=== PATIENT | female | born 1990 | race African-American/Black ===

== ENCOUNTER 2017-04-06 08:38 | Emergency (ER) | payer OTHER ==
[~2017-04-06] VITALS: Ht 165.1 cm; Wt 77.1 kg
[2017-04-06] MEDS ORDERED: AMOXICILLIN 50500 M1 PO (10:21)
[2017-04-06 10:39] VITALS: BP 117/72
== END 2017-04-06 10:39 | disposition home or self-care (01) ==
LOC: ER 08:38
DX: J02.0 Streptococcal pharyngitis (principal)

== ENCOUNTER 2017-05-04 01:58 | Emergency (ER) | payer OTHER ==
[~2017-05-04] VITALS: Ht 157.5 cm; Wt 81.7 kg
[~2017-05-04 01:58] MED LIST: AMOXICILLIN 50500 M1 PO
[2017-05-04 02:46] LABS: URINE BILIRUBIN NEGATIVE (Negative); URINE BLOOD NEGATIVE (Negative); URINE COLOR YELLOW; URINE GLUCOSE-RANDOM* NEGATIVE (Negative); URINE KETONES NEGATIVE (Negative); URINE LEUKOCYTES-REFLEX NEGATIVE (Negative); URINE PROTEIN (DIPSTICK) NEGATIVE (Negative); URINE SPECIFIC GRAVITY 1.015 (1.003-1.035); URINE UROBILINOGEN 0.2 E.U./dl (0.2-1.0)
[2017-05-04 03:01] LABS: ABSOLUTE NEUTROPHILS 2.8 thou/uL (1.4-8.2); BASOPHILS 0.5 % (0.0-2.0); EOSINOPHILS 0.2 % (0.0-3.0); HEMATOCRIT 38.5 % (37.0-47.0); HEMOGLOBIN 12.7 gm/dL (12.0-15.0); LYMPHOCYTES 47.1 % (24.0-44.0); MANUAL DIFF NO; MCH 25.6 pg (26.0-34.0); MCV 77.5 fL (80.0-100.0); MONOCYTES 10.1 % (1.0-8.0); PLATELET COUNT 157 thou/uL (150-400); POLYS 42.1 % (36.0-66.0); RBC 4.97 mil/uL (4.20-5.00); WBC 6.7 thou/uL (4.0-11.0)
[2017-05-04 03:11] LABS: CALCIUM 9.2 mg/dL (8.5-10.1); CREATININE 0.8 mg/dL (0.6-1.0); POTASSIUM 3.7 mmol/L (3.5-5.1)
[2017-05-04] MEDS ORDERED: MOBIC15 MG PO (04:27)
[2017-05-04] MEDS ORDERED: ULTRAM 50MG TAB50 MG PO (04:27)
[2017-05-04 04:52] VITALS: BP 107/63
== END 2017-05-04 04:50 | disposition home or self-care (01) ==
LOC: ER 01:58
PROVIDERS: Emergency Medicine
DX: M54.9 Dorsalgia, unspecified (principal)

== ENCOUNTER 2018-02-22 14:13 | Emergency (ER) | payer BC, OTHER ==
[~2018-02-22] VITALS: Ht 165.1 cm; Wt 88.0 kg
[~2018-02-22 14:13] MED LIST changes: +HYDROCODONE-AP1 EAC6 PO; +MOBIC15 MG PO; +NOHOMEMEDICATIONS; +ULTRAM 50MG TAB50 MG PO; +VALACYCLOVIR1000 MG PO
[2018-02-22 14:59] LABS: URINE BILIRUBIN NEGATIVE (Negative); URINE BLOOD 2+ (Negative); URINE CLARITY CLEAR; URINE COLOR YELLOW; URINE GLUCOSE-RANDOM* NEGATIVE (Negative); URINE KETONES NEGATIVE (Negative); URINE LEUKOCYTES-REFLEX NEGATIVE (Negative); URINE NITRITE-REFLEX NEGATIVE (Negative); URINE PROTEIN (DIPSTICK) NEGATIVE (Negative); URINE SPECIFIC GRAVITY 1.015 (1.005-1.035); URINE UROBILINOGEN 0.2 E.U./dl (0.2-1.0)
[2018-02-22 15:06] LABS: BACTERIA-REFLEX 1-9 Few /HPF (None Seen); CASTS None Seen /LPF (None Seen); CRYSTALS None Seen /LPF (None Seen); SQUAMOUS 0-3 Few /LPF (0-3); URINE RBC None Seen /HPF (0-2); URINE WBC-REFLEX 0-5 Rare /HPF (0-5)
[2018-02-22] MEDS ORDERED: FLEXERIL PO (16:19)
[2018-02-22] MEDS ORDERED: NORCO 5-325 TA1 EACH PO (16:19)
[2018-02-22] MEDS ORDERED: PREDNISONE 20 M20 MG PO (16:19)
[2018-02-22 17:02] VITALS: BP 111/57
== END 2018-02-22 17:04 | disposition home or self-care (01) ==
LOC: ER 14:13
PROVIDERS: Emergency Medicine
DX: M54.5 Low back pain (principal)

== ENCOUNTER 2018-08-11 23:16 | Emergency (ER) | payer BC, OTHER ==
[~2018-08-11] VITALS: Ht 157.5 cm; Wt 90.7 kg
[~2018-08-11 23:16] MED LIST changes: +FLEXERIL PO; +NORCO 5-325 TA1 EACH PO; +PREDNISONE 20 M20 MG PO
[2018-08-11 23:35] LABS: URINE BILIRUBIN NEGATIVE (Negative); URINE BLOOD TRACE (Negative); URINE CLARITY CLEAR; URINE COLOR YELLOW; URINE GLUCOSE-RANDOM* NEGATIVE (Negative); URINE KETONES NEGATIVE (Negative); URINE LEUKOCYTES-REFLEX NEGATIVE (Negative); URINE NITRITE-REFLEX NEGATIVE (Negative); URINE PROTEIN (DIPSTICK) NEGATIVE (Negative); URINE SPECIFIC GRAVITY <= 1.005 (1.005-1.035); URINE UROBILINOGEN 0.2 E.U./dl (0.2-1.0)
[2018-08-11] MEDS ORDERED: PREDNISONE 20 M20 MG PO (23:45)
[2018-08-11 23:58] VITALS: BP 129/69
== END 2018-08-12 | disposition home or self-care (01) ==
LOC: ER 23:16
PROVIDERS: Emergency Medicine
DX: M72.2 Plantar fascial fibromatosis (principal); R10.9 Unspecified abdominal pain

== ENCOUNTER 2018-08-31 09:10 | Emergency (ER) | payer BC, OTHER ==
[~2018-08-31] VITALS: Ht 165.1 cm; Wt 89.8 kg
[2018-08-31] MEDS ORDERED: MEDROLDOSEPACK PO (09:26)
[2018-08-31] MEDS ORDERED: MOBIC7.5 MG PO (09:26)
== END 2018-08-31 09:40 | disposition home or self-care (01) ==
LOC: ER 09:10
DX: M72.2 Plantar fascial fibromatosis (principal)

== ENCOUNTER 2018-10-19 20:05 | Emergency (ER) | payer BC, OTHER ==
[~2018-10-19] VITALS: Ht 157.5 cm; Wt 90.7 kg
[~2018-10-19 20:05] MED LIST changes: +MEDROLDOSEPACK PO; +MOBIC7.5 MG PO
[2018-10-19] MEDS ORDERED: PREDNISONE 20 M20 MG PO (21:11)
[2018-10-19] MEDS ORDERED: MOBIC15 MG PO (21:11)
[2018-10-19 21:42] VITALS: BP 120/76
== END 2018-10-19 21:42 | disposition home or self-care (01) ==
LOC: ER 20:05
DX: M72.2 Plantar fascial fibromatosis (principal)

== ENCOUNTER 2019-07-03 10:59 | Emergency (ER) | payer BC, OTHER ==
[~2019-07-03] VITALS: Ht 165.1 cm; Wt 90.7 kg
[2019-07-03 11:21] LABS: URINE BILIRUBIN NEGATIVE (Negative); URINE BLOOD NEGATIVE (Negative); URINE CLARITY CLEAR; URINE COLOR YELLOW; URINE GLUCOSE-RANDOM* NEGATIVE (Negative); URINE KETONES NEGATIVE (Negative); URINE LEUKOCYTES-REFLEX NEGATIVE (Negative); URINE NITRITE-REFLEX NEGATIVE (Negative); URINE PROTEIN (DIPSTICK) NEGATIVE (Negative); URINE UROBILINOGEN 0.2 E.U./dl (0.2-1.0)
[2019-07-03 12:01] LABS: CALCIUM 9.3 mg/dL (8.5-10.1); CREATININE 0.8 mg/dL (0.6-1.0); POTASSIUM 3.6 mmol/L (3.5-5.1)
[2019-07-03 12:02] LABS: ABSOLUTE NEUTROPHILS 2.4 thou/uL (1.4-8.2); BASOPHILS 0.1 % (0.0-2.0); EOSINOPHILS 0.1 % (0.0-3.0); HEMATOCRIT 35.3 % (37.0-47.0); HEMOGLOBIN 11.7 gm/dL (12.0-15.0); LYMPHOCYTES 41.6 % (24.0-44.0); MCH 24.3 pg (26.0-34.0); MCHC 33.2 g/dL (28.0-37.0); MCV 73.2 fL (80.0-100.0); POLYS 48.2 % (36.0-66.0); RBC 4.83 mil/uL (4.20-5.00); RDW 16.3 % (10.5-14.5); WBC 4.9 thou/uL (4.0-11.0)
[2019-07-03 12:07] LABS: ALBUMIN 3.6 g/dL (3.4-5.0); TOTAL BILIRUBIN 0.5 mg/dL (<0.1-1.0); TOTAL PROTEIN 8.2 g/dL (6.4-8.2)
[2019-07-03 12:53] LABS: ANISOCYTOSIS 1+; LARGE PLATELETS FEW; PLATELET COUNT 163 thou/uL (150-400); PLATELET ESTIMATE NORMAL
[2019-07-03 12:59] VITALS: BP 110/62
[2019-07-03] MEDS ORDERED: DICLEGIS DR 101 EACH PO (13:01)
[2019-07-03] MEDS ORDERED: ONDANSETRON HCL4 M2 PO (13:01)
--- NOTE | 2019-07-03 16:02 | EKG ---
[address] [address] ELECTROCARDIOGRAM REPORT Name: NIMA BIRMINGHAM Room #: [facility] [id number] Admission: 07/03/19 Attend Phys: Discharge: 07/03/19 Date of : 89 Report #: [id number] THIS REPORT FOR: //name// [facility] ED Test Date: 2019-07-03 Test Time: 11:28:45 Pat Name: NIMA BIRMINGHAM Department: Room: Gender: F Is Manager: BANDAR : 1990 Requested By: Pawel Matos Order Number: [id number] MD: Aldair Londono Measurements Intervals [place] Rate: 64 P: 56 CT: 153 QRS: 53 QRSD: 80 T: 28 QT: 383 QTc: 395 Interpretive Statements Sinus arrhythmia No previous ECG available for comparison Electronically Signed On 07-03-2019 16:02:16 CDT by Aldair Londono [email or web address] <ELECTRONICALLY SIGNED> By: Aldair Londono MD 07/03/19 1602 [id number] Aldair Londono MD /MERVAT
== END 2019-07-03 12:59 | disposition home or self-care (01) ==
LOC: ER 10:59
PROVIDERS: Physician Assistant
DX: O21.9 Vomiting of pregnancy, unspecified (principal); R42 Dizziness and giddiness; Z3A.00 Weeks of gestation of pregnancy not specified

== ENCOUNTER 2019-08-27 19:02 | Emergency (ER) | payer BC, OTHER ==
[~2019-08-27] VITALS: Ht 165.1 cm; Wt 87.1 kg
[~2019-08-27 19:02] MED LIST changes: +DICLEGIS DR 101 EACH PO; +ONDANSETRON HCL4 M2 PO
[2019-08-27] MEDS ORDERED: LOESTRIN FE 1-1 EACH PO (19:13)
[2019-08-27 20:00] LABS: HEMATOCRIT 35.1 % (37.0-47.0); HEMOGLOBIN 11.3 gm/dL (12.0-15.0); MCH 23.7 pg (26.0-34.0); MCHC 32.3 g/dL (28.0-37.0); MCV 73.5 fL (80.0-100.0); RBC 4.78 mil/uL (4.20-5.00); RDW 15.3 % (10.5-14.5); WBC 5.4 thou/uL (4.0-11.0)
[2019-08-27 20:13] LABS: CALCIUM 9.3 mg/dL (8.5-10.1); CREATININE 0.7 mg/dL (0.6-1.0); POTASSIUM 3.5 mmol/L (3.5-5.1)
[2019-08-27] MEDS ORDERED: MECLIZINE HCL25 MG PO (23:30)
[2019-08-27 23:41] VITALS: BP 109/57
== END 2019-08-27 23:44 | disposition home or self-care (01) ==
LOC: ER 19:02
PROVIDERS: Emergency Medicine
DX: R42 Dizziness and giddiness (principal)

== ENCOUNTER 2020-02-06 01:32 | Emergency (ER) | payer BC, OTHER ==
[~2020-02-06] VITALS: Ht 165.1 cm; Wt 81.7 kg
[~2020-02-06 01:32] MED LIST changes: +LOESTRIN FE 1-1 EACH PO; +MECLIZINE HCL25 MG PO
[2020-02-06] MEDS ORDERED: ACETAMINOPHEN PO (01:41)
[2020-02-06] MEDS ORDERED: TRAMADOL 50 MG50 MG PO (02:25)
[2020-02-06] MEDS ORDERED: NORFLEX100 MG PO (02:25)
[2020-02-06] MEDS ORDERED: NAPROSYN500 MG PO (02:25)
[2020-02-06 02:28] LABS: URINE BILIRUBIN NEGATIVE (Negative); URINE BLOOD 2+ (Negative); URINE CLARITY CLOUDY; URINE COLOR YELLOW; URINE GLUCOSE-RANDOM* NEGATIVE (Negative); URINE KETONES NEGATIVE (Negative); URINE LEUKOCYTES-REFLEX 3+ (Negative); URINE NITRITE-REFLEX NEGATIVE (Negative); URINE PROTEIN (DIPSTICK) 1+ (Negative); URINE SPECIFIC GRAVITY 1.015 (1.005-1.035); URINE UROBILINOGEN 0.2 E.U./dl (0.2-1.0)
[2020-02-06 02:45] LABS: SQUAMOUS 0-3 Few /LPF (0-3)
[2020-02-06 02:46] LABS: BACTERIA-REFLEX 1-9 Few /HPF (None Seen); CASTS None Seen /LPF (None Seen); CRYSTALS None Seen /LPF (None Seen); MUCUS 0-3 Light strn/LPF (None Seen); URINE RBC >20 Many /HPF (0-2); URINE WBC-REFLEX >25 Many /HPF (0-5); WBC CLUMPS Many (None Seen)
[2020-02-06] MEDS ORDERED: BACTRIM DS TAB1 EACH PO (02:55)
[2020-02-06 03:42] VITALS: BP 120/69
== END 2020-02-06 03:44 | disposition home or self-care (01) ==
LOC: ER 01:32
PROVIDERS: Emergency Medicine
DX: M54.5 Low back pain (principal); R35.0 Frequency of micturition; E66.9 Obesity, unspecified; Z68.30 Body mass index [BMI] 30.0-30.9, adult